=== PATIENT | male | born 1950 | race Caucasian/White ===

== ENCOUNTER 2018-12-30 09:15 | Outpatient (CLI) | payer MEDICARE ==
[~2018-12-30 09:15] MED LIST: Iopamidol 370 76% 100 ML VIAL ONE
[2018-12-30 09:56] LABS: Estimated GFR-MDRD - POC Greater than 90
[2018-12-30 10:12] LABS: Anion Gap 14 mmol/L (10-20); BUN (Urea Nitrogen) 22 mg/dL (8.4-25.7); Calc. Creatinine Clearance 0 mL/min (70-130); Calcium 9.6 mg/dL (7.8-10.44); Carbon Dioxide 19 mmol/L (23-31); Chloride 108 mmol/L (98-107); Estimated GFR-MDRD 84; Glucose 123 mg/dL (80-115); Potassium 4.8 mmol/L (3.5-5.1); Sodium 136 mmol/L (136-145)
--- NOTE | 2018-12-30 11:03 | CT ---
CT Abdomen Pelvis W WO con: 12/30/2018 HISTORY: Hematuria COMPARISON: 06/15/2015 FINDINGS: There is a calcified granuloma in the left lower lung. No calcified gallstones are seen. The spleen i s borderline measuring about 13.3 cm. Tiny calcified granulomas seen in the spleen. The liver, pancreas and adrenal glands are normal. No calculi are seen in the kidneys or the ureters. No hydroureteronephrosis is noted in either side. No renal mass is seen. There is normal excretion of contrast from the ureters into the urinary bladder. There is a 1 cm mass arising from the posterior wall of the urinary bladder close to the lef t UVJ. No free air or free fluid is seen in the abdomen or pelvis. No lymphadenopathy is identified. There a re vascular calcifications without evidence of aneurysmal dilatation of the abdominal aorta. There are degenerative changes in the spine. No osteolytic or osteoblastic lesions are seen. There is a sma ll fat-containing left inguinal hernia. IMPRESSION: Urinary bladder mass suspicious for malignancy. Cystoscopy is recommended.
== END 2018-12-30 09:16 | disposition home or self-care (01) ==
LOC: SCSCT 09:15
PROVIDERS: ATTEND Urology
DX: N40.1 Benign prostatic hyperplasia with lower urinary tract symptoms (principal); R31.29 Other microscopic hematuria; R35.0 Frequency of micturition; N32.9 Bladder disorder, unspecified
CPT/HCPCS: 36415; 74178; 80048; Q9967

== ENCOUNTER 2019-01-14 10:11 | Outpatient (CLI) | payer MEDICARE ==
[2019-01-14 11:32] LABS: Hemoglobin 15.5 g/dL (14.0-18.0); Mean Corpuscular HGB CONC 34.7 g/dL (32.0-36.0); Mean Corpuscular Hemoglobin 33.5 pg (27.0-31.0); Mean Corpuscular Volume 96.5 fL (78.0-98.0); Platelet Count 230 thou/uL (130-400); RBC Distribution Width 11.6 % (11.5-14.5); Red Blood Cell (RBC) Count 4.64 mill/uL (4.70-6.10); White Blood Cell (WBC) Count 8.8 thou/uL (4.8-10.8)
[2019-01-14 11:44] LABS: PTT 30.1 SEC (22.9-36.1)
[2019-01-14 11:45] LABS: Prothrombin Time 13.2 SEC (12.0-14.7)
[2019-01-14 11:52] LABS: Anion Gap 16 mmol/L (10-20); BUN (Urea Nitrogen) 15 mg/dL (8.4-25.7); Calc. Creatinine Clearance 0 mL/min (70-130); Carbon Dioxide 21 mmol/L (23-31); Chloride 103 mmol/L (98-107); Estimated GFR-MDRD 82; Glucose 109 mg/dL (80-115); Potassium 4.6 mmol/L (3.5-5.1); Sodium 135 mmol/L (136-145)
== END 2019-01-14 10:12 | disposition home or self-care (01) ==
LOC: LABBT 10:11
PROVIDERS: ATTEND Urology
DX: Z01.818 Encounter for other preprocedural examination (principal); N32.9 Bladder disorder, unspecified
CPT/HCPCS: 93005; 93010

== ENCOUNTER 2019-01-18 07:28 | Day surgery (SDC) | payer MEDICARE ==
[2019-01-14 10:26] VITALS: BMI 35.9
--- NOTE | 2019-01-14 11:44 | RAD ---
2 VIEW CHEST: Date: 01/14/19 HISTORY: Preop. FINDINGS: Lung connor are clear. Heart and mediastinum unremarkable. Osseous structures unremarkable. There is a calcified granuloma in the left lung base, which has been documented on prior CT. IMPRESSION: No acute abnormality. POS: [facility]
[2019-01-18] MEDS ORDERED: Levofloxacin 500 mg/D5W 100 ml Premix Bag ONE (08:00)
[2019-01-18] MEDS ORDERED: Iothalamate Meglumine 60% 50 ML VIAL FS ONE (10:25)
[2019-01-18] MEDS ORDERED: Famotidine/PF 20 mg/2ml Vial ONE (10:29)
[2019-01-18] MEDS ORDERED: Fentanyl 100 MCG/2 ML VIAL ONE ×4 (10:29→13:28)
[2019-01-18] MEDS ORDERED: Metoclopramide HCl 10 MG/2 ML VIAL ONE (11:55)
[2019-01-18] MEDS ORDERED: PROPOFOL 200 MG/20 ML VIAL ONE (11:55)
[2019-01-18] MEDS ORDERED: Lidocaine 1% PF 5 ML VIAL ONE (11:55)
[2019-01-18] MEDS ORDERED: Phenylephrine HCL 10 MG/ML VIAL ONE (11:55)
[2019-01-18] MEDS ORDERED: PROVENTIL INHALER 6.7 G (200 INHALATIONS) ONE (11:55)
[2019-01-18] MEDS ORDERED: Glycopyrrolate 0.2 MG/ML 5 ML SYRINGE ONE (11:55)
[2019-01-18] MEDS ORDERED: Ketorolac Tromethamine 30 MG/ML VIAL ONE (11:55)
[2019-01-18] MEDS ORDERED: Dexamethasone 20 MG/5 ML VIAL ONE (11:55)
[2019-01-18] MEDS ORDERED: Ondansetron PF 4 MG/2 ML Vial ONE (11:55)
[2019-01-18] MEDS ORDERED: Rocuronium Bromide 10 MG/ML (10ML VIAL) ONE (11:55)
[2019-01-18] MEDS ORDERED: SUGAMMADEX SODIUM 200 MG/2 ML VIAL ONE (12:13)
[2019-01-18] MEDS ORDERED: Phenazopyridine HCl 97.5 MG TABLET ONE ×2 (12:26→12:27)
[2019-01-18] MEDS ORDERED: Oxybutynin 5 MG TAB ONE (12:27)
[2019-01-18] MEDS ORDERED: HYDROcodone/Acetaminophen 5/325 mg Tablet ONE (14:59)
--- NOTE | 2019-01-18 18:34 | OP ---
DATE OF PROCEDURE: 01/18/2019 PREOPERATIVE DIAGNOSES: 1. A 68-year-old male with history of microscopic hematuria. 2. Impotence. 3. Microscopic hematuria workup demonstrating incidental left lateral bladder tumor. POSTOPERATIVE DIAGNOSES: 1. A 68-year-old male with history of microscopic hematuria. 2. Impotence. 3. Microscopic hematuria workup demonstrating incidental left lateral bladder tumor. PROCEDURES PERFORMED: Cystoscopy, transurethral resection of bladder tumor, urethral calibration dilatation, meatal calibration with [place] sounds/ dilation, Gonzalez catheter placement. ANESTHESIA: General. COMPLICATIONS: None apparent. DISPOSITION: To recovery room in stable condition. SPECIMEN: TUR of bladder tumor, superficial and deep, sent separately. INTRAOPERATIVE FINDINGS: 1. Decreased urethral lumen caliber difficulty passing a 22-[place] cystoscope, requiring dilatation, bilobar coapting lateral lobes with no significant outlet obstruction. 2. Left lateral bladder tumor size 2 to 2.5 cm with superficial adherent calcific density on the tumor. 3. Tight suspensory ligament. INDICATIONS FOR PROCEDURE AND HISTORY: Mr. Barrow is a pleasant 68-year-old male, who transferred care from [facility]. also transferred care with de as well. Review of chart demonstrated prior history of microscopic hematuria, which was not addressed. Despite the fact the microscopic hematuria was couple of years ago, I advised regarding CT cystoscopy. This, however, unfortunately demonstrated an incidental bladder mass on CT and a diagnostic cystoscopy locally confirmed the lesion suspicious for TCC and advised regarding TURBT. Risks and complications of the procedure were reviewed including, but not limited to, bleeding, pain, infection, injury to adjacent organs, urosepsis, stricture formation, UTI, sepsis, injury to bladder, kidney, urethra, bladder perforation, possible secondary procedure was reviewed. Questions answered to his satisfaction, desired to proceed. DESCRIPTION OF PROCEDURE: After an informed consent was signed, the patient was taken to the operating room, placed in a dorsal lithotomy position with the genital area prepped and draped in the usual surgical sterile fashion. Obstructive findings were grossly appreciated on local flexible cystoscope in the orifice, however, he has difficulty accommodating a standard 22-[place] cystoscope. Meatal calibration dilatation was performed, calibrated from 16 to 28/30-[place] without difficulty. We did provide Uro-Jet down the urethra. I was able to get into the bladder with a 22-[place] scope, however, this required significant manipulation as his urethra caliber had difficulty accommodating standard 22 [place] scope. We made our way to the bladder and I left a 0.35 Sensor wire in the bladder. We then tried to pass a 26-[place] resectoscope. I was only able to pass this down to the mid shaft of his penile urethra. It would not go further. Incidentally noted was a very tight suspensory ligament hindering passage of the scope into the bladder as well. Therefore, I had no choice, but to utilize a 24-[place] noncontinuous flow resectoscope. This did pass with some manipulation to the level of the bladder. Throughout the procedure, frequent emptying of the bladder was performed. Luckily the tumor was not that big, we then transitioned to a Gyrus bipolar loop. Left lateral bladder tumor was resected to flush the mucosa and subsequently we took specimen separately for deep layer. Good hemostasis was obtained. Had some oozing from the prostate, which I anticipate will stop with observation. The UOs were kept out of harm's way. All specimens were evacuated with Corthera evacuator. We left a wire 0.35 Sensor wire in the bladder and using a 20-[place] 3-way Gonzalez catheter, we passed the 20-[place] 3-way Gonzalez catheter over guidewire assist. A 30 mL insufflated. I irrigated the Gonzalez catheter, which demonstrated clear pink tinged output. The tumor bed was inspected prior to placing a Gonzalez catheter, which demonstrated excellent hemostasis. Newell leg bag is attached and he tolerated the procedure well. He is discharged with Corea 5/325 one p.o. q.6 to 8 hours p.r.n., ciprofloxacin 500 mg one p.o. b.i.d. for 10 days, Flomax for 30 days, Colace p.r.n. He will follow up with me next Friday for catheter removal, to review pathology. Job ID: [id number] [facility]
== END 2019-01-18 15:55 | disposition home or self-care (01) ==
LOC: SDC 07:28
PROVIDERS: ATTEND Urology
PROC: 0TBB8ZX Excision of Bladder, Via Natural or Artificial Opening Endoscopic, Diagnostic (ICD-10-PCS; principal; 2019-01-18)
DX: C67.9 Malignant neoplasm of bladder, unspecified (principal); N52.9 Male erectile dysfunction, unspecified; I10 Essential (primary) hypertension; N40.1 Benign prostatic hyperplasia with lower urinary tract symptoms; R35.0 Frequency of micturition; F17.290 Nicotine dependence, other tobacco product, uncomplicated; Z12.5 Encounter for screening for malignant neoplasm of prostate; Z87.891 Personal history of nicotine dependence; Z86.19 Personal history of other infectious and parasitic diseases; Z80.42 Family history of malignant neoplasm of prostate; Z80.52 Family history of malignant neoplasm of bladder; Z79.82 Long term (current) use of aspirin; Z79.899 Other long term (current) drug therapy
CPT/HCPCS: 52235; 71046; 76000; 86850; 86900; 86901; 88305; C1758; C1769; 36415; J0131; J1100; J1885; J1956; J2001; J2370; J2405; J2704; J2765; J3010; Q9961; S0028

== ENCOUNTER 2019-03-04 12:05 | Outpatient (CLI) | payer MEDICARE ==
[2019-03-04 13:36] LABS: Mean Corpuscular HGB CONC 34.5 g/dL (32.0-36.0); Mean Corpuscular Hemoglobin 32.8 pg (27.0-31.0); Mean Platelet Volume 8.5 fL (7.4-10.4); Platelet Count 216 thou/uL (130-400); RBC Distribution Width 11.9 % (11.5-14.5); Red Blood Cell (RBC) Count 4.57 mill/uL (4.70-6.10); White Blood Cell (WBC) Count 9.7 thou/uL (4.8-10.8)
[2019-03-04 13:46] LABS: PTT 28.8 SEC (22.9-36.1); Prothrombin Time 12.9 SEC (12.0-14.7)
[2019-03-04 13:59] LABS: Anion Gap 13 mmol/L (10-20); BUN (Urea Nitrogen) 22 mg/dL (8.4-25.7); Calc. Creatinine Clearance 0 mL/min (70-130); Calcium 10.5 mg/dL (7.8-10.44); Carbon Dioxide 21 mmol/L (23-31); Chloride 106 mmol/L (98-107); Estimated GFR-MDRD 86; Glucose 110 mg/dL (80-115); Potassium 4.8 mmol/L (3.5-5.1); Sodium 135 mmol/L (136-145)
[2019-03-04 14:04] LABS: Clarity Clear (Clear); Glucose, Urine (Dipstick) Unable to Interpret mg/dL (Negative); Leukocyte Unable to Interpret (Negative); Nitrite Unable to Interpret (Negative); Protein, Urine (Dipstick) Unable to Interpret mg/dL (Neg-Trace); Urobilinogen UNABLE TO INTERPRET mg/dL (Less than 2)
[2019-03-04 14:05] LABS: Bilirubin Unable to Interpret (Negative); Blood, Urine Unable to Interpret (Negative)
[2019-03-04 14:07] LABS: Bacteria/HPF Rare-Few HPF (None Seen); RBC/HPF None Seen HPF (0-3); Squamous Epithelial 0-3 HPF (0-3); WBC/HPF 0-3 HPF (0-3)
== END 2019-03-04 12:06 | disposition home or self-care (01) ==
LOC: LABBT 12:05
PROVIDERS: ATTEND Urology
DX: Z01.818 Encounter for other preprocedural examination (principal); C67.9 Malignant neoplasm of bladder, unspecified; N40.1 Benign prostatic hyperplasia with lower urinary tract symptoms; R35.0 Frequency of micturition; R31.29 Other microscopic hematuria; N52.9 Male erectile dysfunction, unspecified; Z98.890 Other specified postprocedural states; Z87.448 Personal history of other diseases of urinary system; Z86.19 Personal history of other infectious and parasitic diseases; Z80.42 Family history of malignant neoplasm of prostate
CPT/HCPCS: 80048; 81001; 85027; 85610; 85730; 87086; 88121; 93005; 93010

== ENCOUNTER 2019-03-15 16:59 | Outpatient (CLI) | payer MEDICARE | END 2019-03-15 17:00 | disposition home or self-care (01) | LOC: LABBT 16:59 | PROVIDERS: ATTEND Urology | DX: Z01.812 Encounter for preprocedural laboratory examination (principal); Z12.5 Encounter for screening for malignant neoplasm of prostate; C67.9 Malignant neoplasm of bladder, unspecified; N40.1 Benign prostatic hyperplasia with lower urinary tract symptoms; R35.0 Frequency of micturition; R31.29 Other microscopic hematuria; N52.9 Male erectile dysfunction, unspecified; Z80.42 Family history of malignant neoplasm of prostate; Z86.19 Personal history of other infectious and parasitic diseases; Z87.448 Personal history of other diseases of urinary system; Z98.890 Other specified postprocedural states | CPT/HCPCS: 86850; 86900; 86901 ==

== ENCOUNTER 2019-03-17 07:43 | Day surgery (SDC) | payer MEDICARE ==
[2019-03-04 12:07] VITALS: BMI 35.9
[2019-03-17] MEDS ORDERED: Levofloxacin 500 mg/D5W 100 ml Premix Bag ONE (08:52)
[2019-03-17] MEDS ORDERED: Fentanyl 100 MCG/2 ML VIAL ONE (09:32)
[2019-03-17] MEDS ORDERED: Midazolam HCl 2 mg/2 ml Vial ONE (09:47)
[2019-03-17] MEDS ORDERED: Ondansetron PF 4 MG/2 ML Vial ONE (10:20)
[2019-03-17] MEDS ORDERED: PROPOFOL 200 MG/20 ML VIAL ONE (10:20)
[2019-03-17] MEDS ORDERED: Dexamethasone 20 MG/5 ML VIAL ONE (10:20)
[2019-03-17] MEDS ORDERED: ePHEDrine 50 MG/ML VIAL ONE (10:20)
[2019-03-17] MEDS ORDERED: Lidocaine 1% PF 5 ML VIAL ONE (10:20)
[2019-03-17] MEDS ORDERED: PHENYLEPHRINE-NS 100 MCG/ML 10 ML SYRINGE ONE (10:20)
[2019-03-17] MEDS ORDERED: Ketorolac Tromethamine 30 MG/ML VIAL ONE (10:20)
[2019-03-17] MEDS ORDERED: Phenazopyridine HCl 97.5 MG TABLET ONE (11:13)
[2019-03-17] MEDS ORDERED: Oxybutynin 5 MG TAB ONE (11:13)
[2019-03-17] MEDS ORDERED: HYDROcodone/Acetaminophen 5/325 mg Tablet ONE (12:46)
--- NOTE | 2019-03-17 13:07 | OP ---
DATE OF PROCEDURE: 03/17/2019 PREOPERATIVE DIAGNOSES: 1. Mr. Barrow is a 68-year-old male with history of microscopic hematuria, subsequently found to have bladder tumor status post transurethral resection of bladder tumor, January 18, 2019, pathologic Ta low-grade transitional cell carcinoma. 2. Cytology negative. 3. Dysuria. 4. 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 5. Previous cystoscopy demonstrating diffuse small caliber urethral lumen, tight suspensory ligament, known difficult access to the bladder secondary to decrease urethral caliber, tight suspensory ligament. POSTOPERATIVE DIAGNOSES: 1. Mr. Barrow is a 68-year-old male with history of microscopic hematuria, subsequently found to have bladder tumor status post transurethral resection of bladder tumor, January 18, 2019, pathologic Ta low-grade transitional cell carcinoma. 2. Cytology negative. 3. Dysuria. 4. 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 5. Previous cystoscopy demonstrating diffuse small caliber urethral lumen, tight suspensory ligament, known difficult access to the bladder secondary to decrease urethral caliber, tight suspensory ligament. PROCEDURES PERFORMED: Flexible and rigid cystoscopy, dilation of urethral stricture over guidewire with Elvin cystoscopy, 20-[place]an Marana tip, 10 mL Gonzalez catheter placement over guidewire. ANESTHESIA: LMA. COMPLICATIONS: None apparent. DISPOSITION: To recovery room in stable condition. INTRAOPERATIVE FINDINGS: 1. Proximal penile bulbar stricture, 12- to 14-[place]an in which flexible cystoscope was able to be negotiated to the bladder. 2. Bilobar coapting lateral lobes with no significant outlet obstruction. 3. Bladder grossly unremarkable. No evidence of recurrent bladder tumor. Previous resection site noted in the left lateral wall with small granuloma from the prior resection site with no evidence of papillary recurrence. INDICATIONS FOR PROCEDURE AND HISTORY: Mr. Barrow is a 68-year-old male, who presented to transfer care from [facility]. Family history of prostate cancer, bladder cancer. Review of records demonstrated microscopic hematuria, which was not worked up, subsequently found to have a small left lateral bladder tumor. His bladder tumor was not difficult to treat per se; however, access into the bladder was very difficult thus he was found to have diffuse decreased urethral caliber in which it was unable to accommodate a 26-[place] resectoscope. The only resectoscope smaller we had in hospital was 24 non-continuous sheath, this was passed; however, difficult even with a 24 due to diffuse decreased urethral lumen caliber. He has been fully informed regarding increased risk of urethral stricture disease due to intraoperative findings. He has had dysuria, urine culture negative. There is high suspicion for urethral stricture advised regarding cystoscopy. Cytology was obtained preop demonstrating no evidence of malignant cells. He presents today for diagnostic cystoscopy, dilation of urethral stricture. Risks and complications including, but not limited to, bleeding, pain, infection, injury to adjacent organs, urosepsis, recurrent nature of stricture disease reviewed. Questions answered to his satisfaction and desired to proceed. DESCRIPTION OF PROCEDURE: After an informed consent was signed, the patient was taken to the operating room, placed in a dorsal lithotomy position with the genital area prepped and draped in the usual surgical sterile fashion. Bilateral RODRICK hose SCDs were placed. Broad-spectrum antibiotics were provided. We used a 17- [place] sheath first. I was able to access the proximal penile urethra; however, at the level of the bulbar urethra, there was a urethral stricture in about 12- to 14-[place] caliber. I did transition to a flexible cystoscope, as the angle of His urethra is quite cumbersome with the rigid, moreover he has a very tight suspensory ligament. As the flexible scope would be less traumatic, we used this to gain access into the bladder. We engaged the urethral stricture with a flexible cystoscope, passed a 0.35 Super Stiff wire to the level of the bladder, confirmed on fluoroscopy. With the wire in situ, I was easily able to negotiate the scope to the level of the bladder. No other urethral strictures were seen. Prostatic urethra was visualized demonstrating coapting lateral lobes with no significant outlet obstruction. Bladder was surveyed with a flexible cystoscope demonstrating no evidence of bladder tumor recurrence. The UOs are well away from the bladder neck about 6 to 8 mm, bilateral clear efflux of urine. The previous resection site in the left lateral wall was noted demonstrating small granulomatous eschar with prior resection cautery. There was no papillary recurrence. At this time with the wire in situ, we did dilate his urethral stricture with Elvin dilators sequentially from 16-[place]an to 22. I did not engage a 24, given his clinical history. I dilated without significant issues. Even with the passage of the flexible cystoscope, the stricture appeared to be quite soft and resolved. After the dilatation, I did restage him with a 17-[place] scope, and a 22-[place] cystoscope. This was able to be passed. We were able to bypass the dilatation site uneventfully. But again, his tight suspensory ligament in his morbid obesity makes the angle into the bladder quite cumbersome to engage the lateral solomon of the bladder as previously noted. As there was no tumor recurrence, no need for biopsy or resection was warranted as I prefer not to pass the resectoscope or largest compromises absolutely necessary i.e. tumor recurrence. With the wire left in situ, we passed a 20-[place] Marana tip into the bladder without significant issues and attached to gravity bag. He will be discharged with ciprofloxacin for 10 days, VESIcare 5 mg 7 days, Colace, Azo [id number] p.r.n. The patient requesting narcotics. I informed them that routinely narcotics are not required for indwelling Gonzalez catheter; however, he is pretty adamant about obtaining a short course of [place]. I informed him that I will give him 20, and should ration and use judiciously. On our last endeavor, I did not provide narcotics and he went to the emergency room for CT, which I am trying to avoid. Patient education provided regarding proper narcotic use and weaning. He will follow up with me next for Gonzalez catheter removal. We will schedule interval cystoscopy at 3-month interval for surveillance for bladder cancer. Job ID: [id number] [facility]
== END 2019-03-17 12:58 | disposition home or self-care (01) ==
LOC: SDC 07:43
PROVIDERS: ATTEND Urology
PROC: 0T7D8ZZ Dilation of Urethra, Via Natural or Artificial Opening Endoscopic (ICD-10-PCS; principal; 2019-03-17)
DX: N35.912 Unspecified bulbous urethral stricture, male (principal); I10 Essential (primary) hypertension; N40.1 Benign prostatic hyperplasia with lower urinary tract symptoms; N13.8 Other obstructive and reflux uropathy; R35.0 Frequency of micturition; E66.01 Morbid (severe) obesity due to excess calories; Z68.35 Body mass index [BMI] 35.0-35.9, adult; Z87.891 Personal history of nicotine dependence; Z79.82 Long term (current) use of aspirin; Z79.899 Other long term (current) drug therapy
CPT/HCPCS: J1100; J1885; J1956; J2001; J2250; J2405; J2704; J3010; J3490

== ENCOUNTER 2021-03-08 15:37 | Emergency (ER) | payer MEDICARE ==
[2021-03-08 16:19] LABS: #Basophils 0.1 thou/uL (0.0-0.2); #Eosinphils 0.7 thou/uL (0.0-0.7); #Lymphocytes 2.4 thou/uL (1.20-3.40); #Monocytes 0.6 thou/uL (0.11-0.59); #Neutrophils 3.2 thou/uL (1.40-6.50); %Eosinophils 10.1 % (0.0-10.0); %Lymphocytes 34.4 % (21.0-51.0); %Monocytes 8.1 % (0.0-10.0); %Neutrophils 46.5 % (42.0-75.0); Mean Corpuscular HGB CONC 35.4 g/dL (32.0-36.0); Mean Corpuscular Hemoglobin 33.6 pg (27.0-31.0); Mean Corpuscular Volume 94.8 fL (78.0-98.0); Mean Platelet Volume 7.8 fL (7.4-10.4); Platelet Count 173 thou/uL (130-400); RBC Distribution Width 11.5 % (11.5-14.5); Red Blood Cell (RBC) Count 4.18 mill/uL (4.70-6.10); White Blood Cell (WBC) Count 6.8 thou/uL (4.8-10.8)
[2021-03-08 16:41] LABS: ALT (SGPT) 58 U/L (8-55); AST (SGOT) 41 U/L (5-34); Albumin 4.1 g/dL (3.4-4.8); Alkaline Phosphatase 54 U/L (40-110); Anion Gap 13 mmol/L (10-20); BUN (Urea Nitrogen) 14 mg/dL (8.4-25.7); Bilirubin, Total 0.4 mg/dL (0.2-1.2); Calc. Creatinine Clearance 0 mL/min (70-130); Calcium 9.5 mg/dL (7.8-10.44); Carbon Dioxide 26 mmol/L (23-31); Chloride 103 mmol/L (98-107); Globulin 3.7 g/dL (2.4-3.5); Glucose 99 mg/dL (80-115); Potassium 4.6 mmol/L (3.5-5.1); Protein, Total 7.8 g/dL (5.8-8.1); Sodium 137 mmol/L (136-145)
[2021-03-08] MEDS ORDERED: Sterile Water 10 ML VIAL IVP SCH (17:30)
[2021-03-08] MEDS ORDERED: Activase 2 MG VIAL CATH SCH (17:30)
[2021-03-08] MEDS ORDERED: Morphine 4 MG/ML VIAL ONE (17:42)
[2021-03-08] MEDS ORDERED: Ketorolac Tromethamine 30 MG/ML VIAL ONE (17:45)
== END 2021-03-08 19:10 | disposition home or self-care (01) ==
LOC: ERS 15:37
DX: T82.594A Other mechanical complication of infusion catheter, initial encounter (principal); I10 Essential (primary) hypertension
CPT/HCPCS: 71045; 80053; 85025; 93971; 96372; 96374; 99284; J2997; 36415; J1885; J2270

== ENCOUNTER 2021-08-22 12:34 | Outpatient (CLI) | payer MEDICARE | END 2021-08-22 12:35 | disposition home or self-care (01) | LOC: BICRAD 12:34 | PROVIDERS: ATTEND Podiatrist | DX: M79.672 Pain in left foot (principal) ==

== ENCOUNTER 2021-09-12 14:22 | Outpatient (CLI) | payer MEDICARE | END 2021-09-12 14:23 | disposition home or self-care (01) | LOC: BICRAD 14:22 | PROVIDERS: ATTEND Podiatrist | DX: L89.899 Pressure ulcer of other site, unspecified stage (principal) ==

== ENCOUNTER 2021-09-25 10:42 | Outpatient (CLI) | payer MEDICARE ==
[2021-09-25 11:58] LABS: Mean Corpuscular Hemoglobin 32.3 pg (27.0-33.0); Mean Corpuscular Volume 92.4 fl (81.2-95.1); Mean Platelet Volume 11.3 fl (7.4-10.4); Platelet Count 208 10x3/uL (150-450); RBC Distribution Width 12.2 % (11.5-14.5); Red Blood Cell (RBC) Count 4.33 10x6/uL (4.32-5.72); White Blood Cell (WBC) Count 8.2 10x3/uL (3.5-10.5)
[2021-09-25 12:14] LABS: Anion Gap 13 mmol/L (10-20); BUN (Urea Nitrogen) 20 mg/dL (8.4-25.7); Calc. Creatinine Clearance 0 mL/min (70-130); Calcium 8.9 mg/dL (7.8-10.44); Carbon Dioxide 20 mmol/L (23-31); Chloride 109 mmol/L (98-107); Glucose 116 mg/dL (80-115); Potassium 4.9 mmol/L (3.5-5.1); Sodium 137 mmol/L (136-145)
[2021-09-25 20:20] LABS: SARS-CoV-2 PCR by NAA Not Detected (NotDetected)
== END 2021-09-25 10:43 | disposition home or self-care (01) ==
LOC: LABBT 10:42
PROVIDERS: ATTEND Podiatrist
DX: Z01.818 Encounter for other preprocedural examination (principal); Z20.822 Contact with and (suspected) exposure to COVID-19
CPT/HCPCS: 80048; 85027; 93005; U0003; U0005; 93010

== ENCOUNTER 2021-12-03 13:24 | Outpatient (CLI) | payer MEDICARE | END 2021-12-03 13:25 | disposition home or self-care (01) | LOC: BICRAD 13:24 | PROVIDERS: ATTEND Podiatrist | DX: L97.529 Non-pressure chronic ulcer of other part of left foot with unspecified severity (principal) ==

== ENCOUNTER 2024-02-24 08:57 | Outpatient (CLI) | payer MEDICARE, OTHER | END 2024-02-24 08:58 | disposition home or self-care (01) | LOC: SCSMRI 08:57 | PROVIDERS: ATTEND Psychiatry & Neurology Neurology | DX: K85.90 Acute pancreatitis without necrosis or infection, unspecified (principal); R29.898 Other symptoms and signs involving the musculoskeletal system; M47.816 Spondylosis without myelopathy or radiculopathy, lumbar region; M51.36 Other intervertebral disc degeneration, lumbar region; M48.061 Spinal stenosis, lumbar region without neurogenic claudication; M47.817 Spondylosis without myelopathy or radiculopathy, lumbosacral region; M51.37 Other intervertebral disc degeneration, lumbosacral region; M48.07 Spinal stenosis, lumbosacral region; R90.89 Other abnormal findings on diagnostic imaging of central nervous system | CPT/HCPCS: 70551; 70553; 72148; 72158; 74181; 74183; 76377 ==